=== PATIENT | female | born 1945 | race Caucasian/White ===

== ENCOUNTER 2021-09-26 08:25 | Emergency (ER) | payer BC, MEDICARE ==
[~2021-09-26] VITALS: Ht 165.1 cm; Wt 40.9 kg
[~2021-09-26 08:25] MED LIST: ASPI-630 PO; CHOL10003 PO; DONE10TA7 PO; DONE5TAB7 PO; ESCITALOPRAM OX10 MG PO; EZET1TAB41 PO; FERR325T14 PO; LISI1TAB37 PO; MEMA10TA PO; OMEG1CAP38 PO; SODI650T PO
[2021-09-26] MEDS ORDERED: IV NORMAL SALINE 1,000ML 1,000 ML IV ONE (09:00)
--- NOTE | 2021-09-26 09:02 | PHYS DOC ---
Past History Past Medical History: CAD, Dementia, Depression, High Cholesterol, Hypertension, [place], Other Past Surgical History: Other Alcohol Use: None Drug Use: None General Adult EDM: Chief Complaint: MECHANICAL FALL HPI: HPI: 76-year-old female presents via EMS from her care facility with a fall. This was an unwitnessed fall. The patient has severe dementia. They found the patient on the floor and she had a lot of blood matted into her hair. They noti teodora a laceration that they thought might need repair. The patient seemed to be at baseline prior to transport by EMS. The patient is unable to answer any of my questions or tell me anything due to her mental condition. Review of Systems: Review of Systems: Unable to perform due to patient's mental capacity Allergies: Allergies: Allergies Coded Allergies Type Severity Reaction Last Updated Verified No Known Drug Allergies 08/28/15 No Physical Exam: PE: Constitutional: Well developed, well nourished, thin, no acute distress, non- toxic appearance. [] HENT: Normocephalic, atraumatic, bilateral external ears normal, oropharynx moist, no oral exudates, nose normal. [] Eyes: PERRLA, EOMI, conjunctiva normal, no discharge. [] Neck: Normal range of motion, no tenderness, supple, no stridor. [] Cardiovascular: Heart rate regular rhythm, no murmur [] Lungs & Thorax: Bilateral breath sounds clear to auscultation [] Abdomen: Bowel sounds normal, soft, no tenderness, no masses, no pulsatile m asses. [] Skin: 3 cm curved laceration to the posterior scalp [] Back: No tenderness, no CVA tenderness. [] Extremities: No tenderness, no cyanosis, no clubbing, ROM intact, no edema. [] Neurologic: Alert, normal motor function, normal sensory function, no focal deficits noted. [] [] EKG: EKG: [] Radiology/Procedures: Radiology/Procedures: [] Impressions: CT head without contrast PQRS statement: CT scans at this facility use dose reduction including either au tomated exposure control, iterative reconstructions, and /or weight based radiation dosing via mA and kV modification when appropriate to reduce radiation dose to as low as reasonably achievable. HISTORY: Fall injury, head injury, laceration to the occipital scalp. FINDINGS: There is moderate generalized brain atrophy with diffuse enlargement of the ventricles and sulci. No hydrocephalus. No intracranial hemorrhage. No mass. There is a 1 cm hypodense focus of the central midbrain on image 9 which is indeterminate while this could be due to an artifact from the skull base given the absence of hypoattenuation elsewhere on this image this raises the possibility of a true lesion of the mid brain, perhaps a small ischemic infarct or demyelinating lesion of indeterminate age. No cerebral cortical infarction. Subcentimeter hematoma thickness right parietal scalp hematoma. Orbits, mastoids and bones are unremarkable. IMPRESSION: 1. No acute traumatic intracranial CT abnormality. 2. Subcentimeter thickness focal right frontal scalp hematoma. No skull fracture. 3. 1 cm hypoattenuating lesion of the central midbrain could represent an age-indeterminate ischemic or demyelinating injury. Electronically signed by: Loretta Joseph MD (09/26/2021 9:17 AM) [id number] DICTATED AND SIGNED BY: LORETTA JOSEPH MD DATE: 09/26/21911 CC: JATINDER WEISS DO; NYDIA RIGGS MD ~MTH0 0 Heart Score: C/O Chest Pain: N/A Risk Factors: Risk Factors: DM, Current or recent (<one month) smoker, HTN, HLP, family history of CAD, obesity. Risk Scores: Score 0 - 3: 2.5% MACE over next 6 weeks - Discharge Home Score 4 - 6: 20.3% MACE over next 6 weeks - Admit for Clinical Observation Score 7 - 10: 72.7% MACE over next 6 weeks - Early Invasive Strategies Course & Med Decision Making: Course & Med Decision Making Pertinent Labs and Imaging studies reviewed. (See chart for details) The patient's head CT is negative for acute findings. I have repaired her laceration with alena. See note below for details. [] Dragleo Disclaimer: Dragleo Disclaimer: This electronic medical record was generated, in whole or in part, using a voice recognition dictation system. Laceration Repair Lac Repair Indication: [] 3 cm curved laceration of the occipital scalp Procedure: Consent was assumed due to the patient being sent here by her care facility. The wound was thoroughly washed with water. No foreign bodies were found. I closed the wound with 4 alena. There was good skin approximation. Bleeding was controlled. No dressing was applied. Total repaired wound length: 3 cm Other Items: none The patient tolerated the procedure well. Complications: none. Departure Departure: Impression: Primary Impression: Dementia Additional Impressions: Occipital scalp laceration Skin tear Disposition: 01 HOME / SELF CARE / HOMELESS Condition: IMPROVED Referrals: NYDIA RIGGS MD (PCP) Patient Instructions: Skin Tear Care, [id number], Staple Wound Closure, [id number] JATINDER WEISS DO Sep 26, 2021 09:02
--- NOTE | 2021-09-26 09:19 | RAD ---
CT head without contrast PQRS statement: CT scans at this facility use dose reduction including either automated exposure cont rol, iterative reconstructions, and /or weight based radiation dosing via mA and kV modification when appropriate to reduce radiation dose to as low as reasonably achievable. HISTORY: Fall injury, head injury, laceration to the occipital scalp. FINDINGS: There is moderate generalized brain atrophy with diffuse enlargement of the ventricles and sulci. No hydrocephalus. No intracranial hemorrhage. No mass. There is a 1 cm hypodense focus of the central midbrain on image 9 which is indeterminate while this could be due to an artifact from the sk ull base given the absence of hypoattenuation elsewhere on this image this raises the possibility of a true lesion of the mid brain, perhaps a small ischemic infarct or demyelinating lesion of indetermi mundo age. No cerebral cortical infarction. Subcentimeter hematoma thickness right parietal scalp jordana pravin. Orbits, mastoids and bones are unremarkable. IMPRESSION: 1. No acute traumatic intracranial CT abnormality. 2. Subcentimeter thickness focal right frontal scalp hematoma. No skull fracture. 3. 1 cm hypoattenuating lesion of the central midbrain could represent an age-indeterminate ischemic or demyelinating injury. Electronically signed by: Dario Joseph MD (09/26/2021 9:17 AM) [id number]
[2021-09-26 09:54] LABS: BASO # 0.1 x10^3/uL (0.0-0.2); BASO % 1 % (0-3); EOS # 0.1 x10^3/uL (0.0-0.7); EOS % 2 % (0-3); HEMATOCRIT 38.5 % (36.0-47.0); HEMOGLOBIN 12.6 g/dL (12.0-15.5); LYMPH # 1.5 x10^3/uL (1.0-4.8); LYMPH % 21 % (24-48); MEAN CORPUSCULAR HEMOGLOBIN 31 pg (25-35); MEAN CORPUSCULAR HGB CONC 33 g/dL (31-37); MEAN CORPUSCULAR VOLUME 93 fL (79-100); MONO # 0.5 x10^3/uL (0.0-1.1); MONO % 7 % (0-9); NEUT # 4.9 x10^3uL (1.8-7.7); NEUT % 69 % (31-73); PLATELET COUNT 308 x10^3/uL (140-400); RED BLOOD COUNT 4.12 x10^6/uL (3.50-5.40); RED CELL DISTRIBUTION WIDTH 13.8 % (11.5-14.5); WHITE BLOOD COUNT 7.1 x10^3/uL (4.0-11.0)
[2021-09-26 11:00] VITALS: BP 130/100
[2021-09-26 11:17] LABS: CALCIUM 8.9 mg/dL (8.5-10.1); CREATININE 2.2 mg/dL (0.6-1.0); GFR 21.6
[2021-09-26 11:25] LABS: ALBUMIN 3.5 g/dL (3.4-5.0); ALBUMIN/GLOBULIN RATIO 0.9 (1.0-1.7); TOTAL BILIRUBIN 0.3 mg/dL (0.2-1.0); TOTAL PROTEIN 7.2 g/dL (6.4-8.2)
== END 2021-09-26 11:24 | disposition home or self-care (01) ==
LOC: ER 08:25
DX: S01.01XA Laceration without foreign body of scalp, initial encounter (principal); F03.90 Unspecified dementia, unspecified severity, without behavioral disturbance, psychotic disturbance, mood disturbance, and anxiety; I25.10 Atherosclerotic heart disease of native coronary artery without angina pectoris; E78.00 Pure hypercholesterolemia, unspecified; I10 Essential (primary) hypertension; I25.2 Old myocardial infarction; W18.39XA Other fall on same level, initial encounter; Y93.89 Activity, other specified; Y92.89 Other specified places as the place of occurrence of the external cause; Y99.8 Other external cause status
CPT/HCPCS: 12002; 36415; 70450; 80053; 85025; 96361; 96374; 99284; J2060; J7030